=== PATIENT | female | born 2000 | race American Indian/Alaskan Native ===

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

== ENCOUNTER 2021-10-06 10:04 | Emergency (ER) | payer MEDICAID ==
[~2021-10-06] VITALS: Ht 167.6 cm; Wt 121.8 kg
[2021-10-06 10:23] VITALS: BP 134/81
--- NOTE | 2021-10-06 10:35 | NUR ---
SEEN AND TREATED BY PA IN TRIAGE.
[2021-10-06] MEDS ORDERED: GUAI400T92 PO (10:37)
[2021-10-06] MEDS ORDERED: BENZ-38 PO (10:37)
== END 2021-10-06 11:51 | disposition home or self-care (01) ==
LOC: ER 10:05
DX: J02.9 Acute pharyngitis, unspecified (principal); R05.9 Cough, unspecified; R09.81 Nasal congestion; F12.90 Cannabis use, unspecified, uncomplicated; Z79.899 Other long term (current) drug therapy
CPT/HCPCS: 99283

== ENCOUNTER 2022-03-10 11:33 | Emergency (ER) | payer MEDICAID ==
[~2022-03-10] VITALS: Ht 167.6 cm; Wt 131.8 kg
[~2022-03-10 11:33] MED LIST changes: +GUAI400T92 PO
[2022-03-10 13:19] VITALS: BP 127/90
[2022-03-10] MEDS ORDERED: LIDOcaine Viscous 15ml cup MM ONE ×2 (15:05→15:15)
== END 2022-03-10 15:59 | disposition home or self-care (01) ==
LOC: ER 11:33
DX: J02.9 Acute pharyngitis, unspecified (principal); F12.10 Cannabis abuse, uncomplicated; Z79.899 Other long term (current) drug therapy
CPT/HCPCS: 71046; 87081; 87880; 99284

== ENCOUNTER 2022-09-19 15:50 | Emergency (ER) | payer MEDICAID ==
[~2022-09-19] VITALS: Ht 167.6 cm; Wt 135.0 kg
[2022-09-19 15:58] VITALS: BP 120/78
[2022-09-19] MEDS ORDERED: ketorolac trometh inj. 60 MG/2 ML VIAL IM ONE (17:20)
[2022-09-19] MEDS ORDERED: NAPR-56 PO (17:21)
[2022-09-19] MEDS ORDERED: ORPH100T2 PO (17:21)
== END 2022-09-19 17:37 | disposition home or self-care (01) ==
LOC: ER 15:51
DX: M54.31 Sciatica, right side (principal)
CPT/HCPCS: 96372; 99283; J1885

== ENCOUNTER 2023-03-26 14:47 | Emergency (ER) | payer MEDICAID ==
[~2023-03-26] VITALS: Ht 167.6 cm; Wt 135.2 kg
[~2023-03-26 14:47] MED LIST changes: +ORPH100T4 PO
[2023-03-26 14:50] VITALS: BP 90/74
[2023-03-26] MEDS ORDERED: AZIT250T PO ×2 (15:03→15:05)
== END 2023-03-26 15:18 | disposition home or self-care (01) ==
LOC: ER 14:48
DX: H66.002 Acute suppurative otitis media without spontaneous rupture of ear drum, left ear (principal); H65.93 Unspecified nonsuppurative otitis media, bilateral
CPT/HCPCS: 99283

== ENCOUNTER 2023-04-28 11:57 | Emergency (ER) | payer MEDICAID ==
[~2023-04-28] VITALS: Ht 167.6 cm; Wt 139.0 kg
[~2023-04-28 11:57] MED LIST changes: +AZIT250T PO
[2023-04-28 11:58] VITALS: BP 139/69
[2023-04-28] MEDS ORDERED: bacitracin 15gm ointment TP ONE (12:20)
[2023-04-28] MEDS ORDERED: HYDROcodone/acetaminophen 10/325mg tab PO ONE (12:40)
== END 2023-04-28 13:35 | disposition home or self-care (01) ==
LOC: ER 11:57
DX: S69.92XA Unspecified injury of left wrist, hand and finger(s), initial encounter (principal); F12.90 Cannabis use, unspecified, uncomplicated; W22.8XXA Striking against or struck by other objects, initial encounter; Y93.89 Activity, other specified; Y92.89 Other specified places as the place of occurrence of the external cause; Y99.8 Other external cause status
CPT/HCPCS: 73140; 99283; A6258

== ENCOUNTER 2023-07-13 15:48 | Emergency (ER) | payer MEDICAID ==
[~2023-07-13] VITALS: Ht 170.2 cm; Wt 130.4 kg
[2023-07-13 16:10] VITALS: BP 139/99; PULSE 74; RESP 20; TEMP 98.8; O2SAT 99
[2023-07-13 16:50] LABS: STREP A SCREEN NEGATIVE (Neg)
[2023-07-13] MEDS ORDERED: CEFD300C3 PO (19:12)
[2023-07-13] MEDS ORDERED: NEOM10SO7 LEFT EAR (19:12)
[2023-07-13] MEDS ORDERED: DEC4T PO (19:12)
== END 2023-07-13 19:26 | disposition home or self-care (01) ==
LOC: ER 15:49
DX: B34.9 Viral infection, unspecified (principal); Z20.822 Contact with and (suspected) exposure to COVID-19; H60.502 Unspecified acute noninfective otitis externa, left ear; F12.10 Cannabis abuse, uncomplicated; Z86.2 Personal history of diseases of the blood and blood-forming organs and certain disorders involving the immune mechanism
CPT/HCPCS: 36415; 87081; 87502; 87503; 87811; 87880; 99283

== ENCOUNTER 2023-08-28 10:05 | Emergency (ER) | payer SELFPAY ==
[~2023-08-28] VITALS: Ht 167.6 cm; Wt 132.7 kg
[~2023-08-28 10:05] MED LIST changes: +CEFD300C3 PO; +DEC4T PO; +NEOM10SO7 LEFT EAR
[2023-08-28 10:28] VITALS: BP 145/78; PULSE 107; RESP 18; TEMP 99.8; O2SAT 94
[2023-08-28 11:03] LABS: STREP A SCREEN NEGATIVE (Neg)
--- NOTE | 2023-08-28 11:59 | NUR ---
UPDATED PT THAT WAITING FOR FLU RESULT. LAB RUNNING SAMPLE TWICE.
== END 2023-08-28 16:05 | disposition left against medical advice (07) ==
LOC: ER 10:06
DX: J11.1 Influenza due to unidentified influenza virus with other respiratory manifestations (principal); Z53.21 Procedure and treatment not carried out due to patient leaving prior to being seen by health care provider
CPT/HCPCS: 87081; 87502; 87503; 87880; 99281

== ENCOUNTER 2023-11-24 10:32 | Emergency (ER) | payer SELFPAY ==
[~2023-11-24] VITALS: Ht 167.6 cm; Wt 144.5 kg
[2023-11-24] MEDS ORDERED: acetaminophen 325mg tablet PO ONE (11:50)
[2023-11-24] MEDS ORDERED: TAM75C PO (12:48)
[2023-11-24 13:00] VITALS: BP 128/68; PULSE 108; RESP 18; O2SAT 99
[2023-11-24 13:03] VITALS: TEMP 99.6
== END 2023-11-24 13:04 | disposition home or self-care (01) ==
LOC: ER 10:33
DX: J10.1 Influenza due to other identified influenza virus with other respiratory manifestations (principal); Z20.822 Contact with and (suspected) exposure to COVID-19; Z91.010 Allergy to peanuts
CPT/HCPCS: 36415; 71045; 87502; 87503; 87811; 99284; 99285

== ENCOUNTER 2023-11-25 01:47 | Emergency (ER) | payer SELFPAY ==
[~2023-11-25] VITALS: Ht 167.6 cm; Wt 144.0 kg
[~2023-11-25 01:47] MED LIST changes: +TAM75C PO
[2023-11-25 01:51] VITALS: BP 187/85; PULSE 115; RESP 22; TEMP 99; O2SAT 98
== END 2023-11-25 03:14 | disposition left against medical advice (07) ==
LOC: ER 01:48
DX: R06.02 Shortness of breath (principal); R05.9 Cough, unspecified; Z53.21 Procedure and treatment not carried out due to patient leaving prior to being seen by health care provider
CPT/HCPCS: 99281